=== PATIENT | female | born 1955 | race Caucasian/White ===

== ENCOUNTER → 2017-10-17 | Day surgery (SDC) | payer OTHER, MEDICARE ==
--- NOTE | 2017-10-15 11:41 | History & Physical Pre-Op ---
General Information and HPI History of Present Illness: Natalia is a 61-year-old female with a long-standing and worsening complaint of pain to the lateral aspect of her right foot. The patient has undergone an extended course of conservative care, including shoe gear and activity modification, rest, immobilization and courses of NSAIDs. None of this is yielded her any significant relief. The patient presents today for preoperative surgical consultation. Allergies/Medications Allergies: Coded Allergies: Sulfa (Sulfonamide Antibiotics) (ANAPHYLAXIS 10/13/17) Home Med list Bacillus Coagulans (Probiotic) (Unknown Strength) CAPSULE.DR (Unknown Dose) PO DAILY PROBIOTIC (Reported) Bisacodyl (Dulcolax) 5 MG TABLET.DR 3 TAB PO DAILY CONSTIPATION (Reported) Estradiol (Vivelle-Dot) 0.05 MG/24 HOUR PATCH.TDSW 1 PATCH TOP Q3D HRT ( Reported) Furosemide (Lasix) 40 MG TABLET 1 TAB PO PRN EDEMA (Reported) Linaclotide (Linzess) 290 MCG CAPSULE 1 CAP PO DAILY GI (Reported) Multiple Vitamin (Multivitamins) 1 EACH TABLET 1 TAB PO DAILY SUPPLEMENT ( Reported) Omeprazole 40 MG CAPSULE.DR 1 CAP PO DAILY GI (Reported) Polyethylene Glycol 3350 (Miralax) 17 GRAM POWD.PACK 1 PAC PO DAILY CONSTIPATION (Reported) dissolve in water Potassium Chloride (K-Tab ER) (Unknown Strength) TABLET.ER (Unknown Dose) PO PRN SUPPLEMENT (Reported) Past History Medical History Cardiovascular: hypertension Surgical History Pertinent Surgical History: non-contributory Review of Systems Review of Systems: Unremarkable except for that noted in history of present illness Exam & Diagnostic Data Physical Exam: Lungs clear bilaterally. Heart sounds rate and rhythm regular. Lower extremity physical exam demonstrates intact pedal pulses bilaterally. Pulses dorsalis pedis and posterior tibial arteries are palpable bilaterally. Patient without any sensory motor deficits. Deep tendon reflexes grossly intact. She noted to have same and pain with the lateral aspect of the right foot. Assessment/Plan Assessment/Plan: Painful exostosis right foot. A lengthy discussion reviewing both surgical and conservative options was held the patient at bedside and the patient elected to go forward with surgery despite the risks. As Ranked By This Provider Problem List: 1. Primary osteoarthritis, right ankle and foot Attending MD Review Statement Attending Statement Attending MD Statement: examined this patient
[~2017-10-17] VITALS: Ht 157.5 cm; Wt 61.2 kg
[~2017-10-17] MED LIST: DULCOLAX5 M1 PO; K-TAB ER10 MEQ PO; LASIX40 M1 PO; LINZESS290 MC1 PO; MIRALAX17 G1 PO; MULTIVITAMINS1 EAC9 PO; OMEPRAZOLE40 M1 PO; PROBIOTIC1 EAC5 PO; VIVELLE-DOT1 EAC1 TOP
--- NOTE | 2017-10-17 13:42 | Operative Report ---
Operative/Inv Procedure Report Surgery Date: 10/17/17 Name of Procedure: 1 Tailor's bunionectomy right [address] mass right 3 Intra-operative administration of ankle block anestheia Pre-Operative Diagnosis: 1 Tailor's bunion right 2 painful and enlarging soft tissue mass right foot Post-Operative Diagnosis: Same Estimated Blood Loss: scant Surgeon/Shaft Sinker: Guanaco Escamilla DPM Anesthesia: moderate sedation, block Operative/Procedure Note Note: After obtaining informed consent the patient was brought to the operating room and placed on the operating table in the supine position. The patient isn't securely fastened to the operating table utilizing safety belt. After administration of IV sedation, 10 mL of 0.5% Marcaine plain was infiltrated about the patient's right ankle. A well-padded ankle tourniquet was then placed about the patient's right lower extremity. 2 g of Ancef were delivered intravenously times one dose. The right foot and ankle within scrubbed, prepped and draped in the usual aseptic manner. The right lower extremity was elevated to examine to limb, at which point the ankle tourniquet was inflated to 250 mmHg. Attention directed dorsal lateral aspect of the right foot, where a 4 cm linear incision was made at the junction the dorsal plantar skin. It 6 was then carried down to the capture structures at the metatarsophalangeal joint. This was incised reflected. The lateral plantar eminence was then removed a sagittal bone saw. A bursal sac was then identified the inferior margin of the fifth metatarsal head and this was dissected free and passed from the operative field. Specimen was sent for pathologic inspection. Nipple was then irrigated with normal sterile saline. The capture structures then repaired with 3-0 Vicryl subtenons tissues reapproximated 4-0 Vicryl. Skin is then reapproximated 4-0 nylon. Incision dressed with Xeroform, 4 x 4's Kerlix and an Tom wrap. Patient was noted tolerate both procedure and anesthesia well and was noted tolerate both procedure and anesthesia well and was transported from the operating room to recovery via signs stable and best assess intact all digits right foot.
== END ==
LOC: STS 01:15
DX: M21.621 Bunionette of right foot (principal); D21.21 Benign neoplasm of connective and other soft tissue of right lower limb, including hip; M19.071 Primary osteoarthritis, right ankle and foot; I10 Essential (primary) hypertension
CPT/HCPCS: J0690; J2001; J2250; J3490